=== PATIENT | female | born 1955 | race Caucasian/White ===

== ENCOUNTER → 2017-08-13 | Outpatient (CLI) | payer MEDICARE ==
[~2017-08-13] MED LIST: ASPI81CH PO; AZIT250 PO; ERGO50000 PO; ESTR2 PO; Flexeril 10 mg10 MG PO
== END | disposition home or self-care (01) ==
LOC: LAB SRC 14:20
DX: L98.8 Other specified disorders of the skin and subcutaneous tissue (principal)
CPT/HCPCS: 87070; 87075; 87205

== ENCOUNTER 2019-01-22 15:50 | Emergency (ER) | payer MEDICARE ==
[~2019-01-22] VITALS: Ht 152.4 cm; Wt 44.5 kg
[2019-01-22] MEDS ORDERED: Keflex500 MG PO (17:15)
== END 2019-01-22 17:25 | disposition home or self-care (01) ==
LOC: ER 15:50
DX: T22.011A Burn of unspecified degree of right forearm, initial encounter (principal); S50.811A Abrasion of right forearm, initial encounter; M79.7 Fibromyalgia; Z88.2 Allergy status to sulfonamides; Z88.5 Allergy status to narcotic agent; Z79.82 Long term (current) use of aspirin; Z79.899 Other long term (current) drug therapy; F17.200 Nicotine dependence, unspecified, uncomplicated; X58.XXXA Exposure to other specified factors, initial encounter
CPT/HCPCS: 99282

== ENCOUNTER 2019-05-04 10:23 | Day surgery (SDC) | payer MEDICARE ==
[~2019-05-04] VITALS: Ht 154.9 cm; Wt 43.5 kg
[~2019-05-04 10:23] MED LIST changes: +Keflex500 MG PO
--- NOTE | 2019-05-04 10:50 | NUR ---
05/04/19 1050 Eliana Felix History, Chart, Medications and Allergies reviewed before start of procedure. Patient confirms NPO status and agrees with scheduled surgery. PATIENT DETERMINED TO BE ASA APPROPRIATE FOR PROPOFOL SEDATION PRIOR TO START OF PROCEDURE BY DR. MORIN. 3-LEAD EKG REVIEWED WITH PHYSICIAN PRIOR TO START OF PROCEDURE. MONITOR INTACT WITH CONTINUOUS PULSE OXIMETRY AND INTERMITTENT BP.
--- NOTE | 2019-05-04 10:50 | NUR ---
History, Chart, Medications and Allergies reviewed before start of procedure. Patient states colon prep results clear. Patient States Post-Procedure ride home has been arranged.
== END 2019-05-04 11:50 | disposition home or self-care (01) ==
LOC: ORSCMMR 10:23 → ORD 11:00 → ORSCMMR 11:50
PROVIDERS: Internal Medicine Gastroenterology
PROC: 0DBK8ZX Excision of Ascending Colon, Via Natural or Artificial Opening Endoscopic, Diagnostic (ICD-10-PCS; principal; 2019-05-04 11:00)
PROC: 0DBN8ZX Excision of Sigmoid Colon, Via Natural or Artificial Opening Endoscopic, Diagnostic (ICD-10-PCS; principal; 2019-05-04 11:00)
PROC: 0DBH8ZX Excision of Cecum, Via Natural or Artificial Opening Endoscopic, Diagnostic (ICD-10-PCS; principal; 2019-05-04 11:00)
PROC: 0DBM8ZX Excision of Descending Colon, Via Natural or Artificial Opening Endoscopic, Diagnostic (ICD-10-PCS; principal; 2019-05-04 11:00)
DX: Z12.11 Encounter for screening for malignant neoplasm of colon (principal); Z86.010 Personal history of colon polyps; D12.0 Benign neoplasm of cecum; D12.2 Benign neoplasm of ascending colon; K63.5 Polyp of colon; M79.7 Fibromyalgia; F17.210 Nicotine dependence, cigarettes, uncomplicated; Z79.899 Other long term (current) drug therapy
CPT/HCPCS: 88305; J2704; J7120

== ENCOUNTER → 2020-06-07 | Outpatient (CLI) | payer OTHER | END | disposition home or self-care (01) | LOC: LAB 15:52 → LAB SHORT 15:52 → LAB FUT 05-31 08:30 | DX: K86.2 Cyst of pancreas (principal); K86.89 Other specified diseases of pancreas; R63.4 Abnormal weight loss | CPT/HCPCS: 82656 ==

== ENCOUNTER → 2021-11-26 | Outpatient (CLI) | payer OTHER ==
[2021-11-27 08:26] LABS: Candida species (DNA Probe) Negative (NEGATIVE); G. vaginalis (DNA Probe) Negative (NEGATIVE); T. vaginalis (DNA Probe) Negative (NEGATIVE)
[2021-11-29 02:09] LABS: CHLAMYDIA TRACHOMATIS, NAA Negative (Negative)
== END | disposition home or self-care (01) ==
LOC: LAB 18:55 → LAB SHORT 18:55
PROVIDERS: Physician Assistant
DX: N76.0 Acute vaginitis (principal); R30.0 Dysuria; R10.2 Pelvic and perineal pain
CPT/HCPCS: 87086; 87480; 87491; 87510; 87591; 87660